=== PATIENT | female | born 1965 | race Hispanic/Latino ===

== ENCOUNTER 2019-02-19 09:25 | Outpatient (CLI) | payer OTHER ==
--- NOTE | 2019-02-19 10:34 | MRI ---
Lumbar spine MRI without contrast: DATE: 02-19-19 COMPARISON: None HISTORY: Lumbar radiculopathy, bilateral hip and leg pain with numbness and tingling of right leg and right foot. TECHNIQUE: Multiplanar multisequence MR imaging of lumbar spine without contrast. FINDINGS: The sagittal STIR imaging demonstrates subtle increased signal intensity in the region of the L5 pedi ry on the right. There is minimal anterolisthesis of L4 on L5 measuring approximately 3-4 mm. On the basis of 5 lumbar type vertebral bodies, conus medullaris terminates at T12-L1. T12-L1: No significant central canal or neural foraminal stenosis. L1-2: Intervertebral disc height and signal intensity is within normal limits with no significant temitope tral canal or neural foraminal stenosis. L2-3: Mild bilateral facet hypertrophy. No significant central canal or neural foraminal stenosis. L3-4: Mild bilateral facet hypertrophy with no significant central canal or neural foraminal stenosis L4-5: Prominent bilateral facet hypertrophy. Disc desiccation, disc space narrowing, and mild disc bu lge. Mild central canal stenosis. Mild left neural foraminal stenosis. No significant right neural foraminal stenosis. L5-S1: Disc space narrowing and disc desiccation. Mild central canal stenosis. Bilateral facet hypert rophy with no significant neural foraminal stenosis. There is fluid signal intensity within the L4-5 facet joints bilaterally, which may signify instabili ty. This could be better assessed with flexion and extension lateral radiographs. The imaged retroperitoneal structures demonstrate no acute findings. IMPRESSION: Lower lumbar spine degenerative change as detailed above. Transcribed Date/Time: 02/19/2019 10:45 AM
--- NOTE | 2019-02-19 11:13 | MRI ---
CERVICAL SPINE MRI WITHOUT CONTRAST: Date: 02/19/2019 COMPARISON: None. HISTORY: Cervical radiculopathy, constant neck pain with numbness of right fingertips and decreased r michelle of motion of the left shoulder. TECHNIQUE: Multiplanar multisequence MR imaging of the cervical spine without contrast. FINDINGS: The sagittal STIR imaging demonstrates no focal area of osseous marrow edema. There is no significant anterolisthesis or retrolisthesis within the cervical spine. The craniocervical junction and atlantoaxial interspace demonstrate no acute findings. C2-3: There is left facet and uncovertebral osteophyte formation. No significant central canal or ellen ral foraminal stenosis. L3-4: Disc space narrowing, disc desiccation, and mild disc bulge present with partial effacement of the ventral thecal sac and mild central canal stenosis. Bilateral facet and uncovertebral osteophyte formation noted, left greater than right. Mild right and moderate left neural foraminal st enosis. C4-5: Disc space narrowing and disc desiccation with mild disc bulge and mild associated central zo l stenosis. Mild bilateral facet hypertrophy, right greater than left. Mild right neural foraminal stenosis. C5-6: There is disc space narrowing and disc desiccation with disc bulge. Superimposed right paracent ral disc protrusion abuts the ventral aspect of the cord with mild right sided central canal stenosis. No significant neural foraminal stenosis. C6-7: There is a small disc protrusion in the right paracentral/right foraminal region. There is mild bilateral facet hypertrophy. No significant central canal stenosis. Mild/moderate right neural foraminal stenosis. No significant left neural foraminal stenosis. C7-T1: Mild disc bulge and disc space narrowing. No central canal or neural foraminal stenosis. No focal area of abnormal signal intensity is identified within the cervical cord. IMPRESSION: Cervical spine degenerative change, most prominent on the right at C5-6 and C6-7. Transcribed Date/Time: 02/19/2019 11:49 AM
== END 2019-02-19 09:26 | disposition home or self-care (01) ==
LOC: BICMRI 09:25
PROVIDERS: ATTEND Family Medicine
DX: M47.22 Other spondylosis with radiculopathy, cervical region (principal); M47.26 Other spondylosis with radiculopathy, lumbar region
CPT/HCPCS: 72141; 72148

== ENCOUNTER 2020-03-21 09:00 | Outpatient (CLI) | payer OTHER ==
--- NOTE | 2020-03-21 11:29 | MRI ---
MRI OF THE RIGHT HIP WITHOUT CONTRAST: INDICATION: History of primary osteoarthrosis of the right hip; concern for possible avascular necrosis of the ri ght hip with limited range of motion for many years but progressively worsening recently. COMPARISON: Right hip radiographs dated 02/16/2020. FINDINGS: There are prominent marginal osteophytes seen involving the right acetabulum and femoral head. There is a prominent subchondral cyst-like abnormality involving the anterior superior right femoral head consistent with a subchondral cyst or small geode. Similar-appearing subchondral cyst-like abnormali ties are seen involving the anterior superior acetabulum. There is prominent degenerative fraying of the right acetabular labrum. There is a full-thickness tear involving the anterior superior acetabu lar labrum with associated 1 cm paralabral cyst. There is a paralabral cyst involving the posterior superior and posterior left acetabulum with the la rgest cyst measuring 1.2 cm. There is mild degenerative arthrosis of the left hip. There is no overt evidence to suggest the presence of avascular necrosis or acute fracture. There is mild degenerative change of both sacroiliac joints. There is no trochanteric or iliopsoas b ursitis. The right gluteus minimus and medias insertions appear within normal limits. The hamstring origins and rectus femoris origins appear within normal limits. No enlarged lymph nodes are evident . Visualized intrapelvic contents are within normal limits. The visualized right sciatic nerve appe ars within normal limits. IMPRESSION: 1. No evidence of avascular necrosis involving the right hip. 2. Moderate osteoarthrosis of the right hip with associated degenerative labral tear of the right hi p. 3. There are small paralabral cysts seen along the posterior superior and posterior margin of the le ft hip likely reflective of underlying left acetabular labral tears. Mild osteoarthrosis of the left hip. POS: [facility]
== END 2020-03-21 09:01 | disposition home or self-care (01) ==
LOC: BICMRI 09:00
PROVIDERS: ATTEND Orthopaedic Surgery
DX: M16.11 Unilateral primary osteoarthritis, right hip (principal); S73.101A Unspecified sprain of right hip, initial encounter; M24.851 Other specific joint derangements of right hip, not elsewhere classified